=== PATIENT | female | born 1945 | race Caucasian/White ===

== ENCOUNTER → 2018-03-23 06:26 | Day surgery (SDC) | payer BC ==
[~2018-03-23 06:26] MED LIST: Acetaminophen TAB* 325 MG PO PRN; Buffered Lidocaine 0.9% SYRIN* 5 ML/SYR SYRINGE INTRADERM ONE; Cyclopentolate 1% OPTH.SOL* 2 ML BTL ONE; Ketorolac 0.5% OPHTH (NF) 0.5 % 5 ML BTL ONE; Lidocaine 1%* 5 ML VIAL ONE; Lidocaine 2% EPI 1:200000 MPF*10-20 ML VIAL ONE; Midazolam* 1 MG/ML 2 ML VIAL (2 MG) ONE; Neomycin/Polymy/Dex OPTH.SUSP* MAXITROL 0.1% 5 ML ONE; Phenylephrine 2.5% OPTH.SOL* 2 ML BTL ONE; Povidone Iodine 5% OPTH* 30 ML BTL ONE; Proparacaine 0.5% OPHTH.SOL* 15 ML BTL ONE; acetaZOLAMIDE TAB* 250 MG ONE
[2018-03-23 08:11] VITALS: BP 128/75
--- NOTE | 2018-03-23 09:49 | OP ---
DATE OF OPERATION: 03/23/2018. DATE OF : 1945. SURGEON: Magdiel Colin M.D. PREOPERATIVE DIAGNOSIS: Cataract right eye. POSTOPERATIVE DIAGNOSIS: Cataract right eye. OPERATIVE PROCEDURE: Extracapsular cataract extraction with intraocular lens implant right eye. PROCEDURE: The patient was brought to the operating room after being given 1/2% Alcaine with epineph rine drops in the preoperative area. The eye was prepped and draped in the usual sterile fashion. S terile drape and eyelid speculum were placed. Again, topical 1/2% Alcaine with epinephrine was given . A paracentesis incision was made at the 9 o'clock position with the No.75 blade. Clear cornea inc ision 2.2 x 2.2-mm was created at the 12 o'clock position starting at the anterior limbus using the 2 .2-mm keratome. The anterior chamber was irrigated with 0.4 mL of 1% non-preservative intracameral l idocaine and filled with DisCoVisc. A capsulorrhexis was completed using the cystotome and the Utrat a forceps. Hydrodissection was performed with balanced salt solution. The lens nucleus was removed w ith the Phacoemulsification handpiece without incident. Cortex was removed with the irrigation-aspir ation handpiece. The capsular bag was re-inflated using DisCoVisc and an [id number] implant was inser librado with the shooter, oriented to the 96 degree meridian with horizontal reference masters made with th e patient in the seated position in the preoperative area. The irrigation-aspiration handpiece was u sed to remove all residual DisCoVisc. The eye was refilled with balanced salt solution and the wound checked and found to be watertight. Topical Maxitrol drops were given. [id number]/[facility] #: [id number]
== END | disposition home or self-care (01) ==
LOC: OREAST 06:26
PROVIDERS: ATTEND Specialist
DX: H25.811 Combined forms of age-related cataract, right eye (principal); H04.123 Dry eye syndrome of bilateral lacrimal glands; M81.0 Age-related osteoporosis without current pathological fracture; E78.5 Hyperlipidemia, unspecified
CPT/HCPCS: A9270-GY; J2250; V2787

== ENCOUNTER 2018-04-06 07:51 | Day surgery (SDC) | payer BC, MEDICARE ==
[~2018-04-06 07:51] MED LIST changes: -Cyclopentolate 1% OPTH.SOL* 2 ML BTL ONE; -Ketorolac 0.5% OPHTH (NF) 0.5 % 5 ML BTL ONE; -Lidocaine 1%* 5 ML VIAL ONE; -Lidocaine 2% EPI 1:200000 MPF*10-20 ML VIAL ONE; -Midazolam* 1 MG/ML 2 ML VIAL (2 MG) ONE; -Neomycin/Polymy/Dex OPTH.SUSP* MAXITROL 0.1% 5 ML ONE; -Phenylephrine 2.5% OPTH.SOL* 2 ML BTL ONE; -Povidone Iodine 5% OPTH* 30 ML BTL ONE; -Proparacaine 0.5% OPHTH.SOL* 15 ML BTL ONE; -acetaZOLAMIDE TAB* 250 MG ONE
[2018-04-06] MEDS ORDERED: Midazolam* 1 MG/ML 2 ML VIAL (2 MG) ONE ×2 (09:57→10:01)
[2018-04-06 10:26] VITALS: BP 124/42
[2018-04-06] MEDS ORDERED: Ketorolac 0.5% OPHTH (NF) 0.5 % 5 ML BTL ONE (10:33)
[2018-04-06] MEDS ORDERED: Lidocaine 1%* 5 ML VIAL ONE (10:33)
[2018-04-06] MEDS ORDERED: acetaZOLAMIDE TAB* 250 MG ONE (10:33)
[2018-04-06] MEDS ORDERED: Proparacaine 0.5% OPHTH.SOL* 15 ML BTL ONE (10:33)
[2018-04-06] MEDS ORDERED: Neomycin/Polymy/Dex OPTH.SUSP* MAXITROL 0.1% 5 ML ONE (10:33)
[2018-04-06] MEDS ORDERED: Povidone Iodine 5% OPTH* 30 ML BTL ONE (10:33)
[2018-04-06] MEDS ORDERED: Lidocaine 2% EPI 1:200000 MPF*10-20 ML VIAL ONE (10:33)
[2018-04-06] MEDS ORDERED: Cyclopentolate 1% OPTH.SOL* 2 ML BTL ONE (10:33)
[2018-04-06] MEDS ORDERED: Phenylephrine 2.5% OPTH.SOL* 2 ML BTL ONE (10:33)
--- NOTE | 2018-04-06 13:29 | OP ---
DATE OF OPERATION: 04/06/2018 - [facility] DATE OF : 1945. SURGEON: Magdiel Colin M.D. PREOPERATIVE DIAGNOSIS: Cataract left eye. POSTOPERATIVE DIAGNOSIS: Cataract left eye. OPERATIVE PROCEDURE: Extracapsular cataract extraction with intraocular lens implant left eye. DESCRIPTION OF PROCEDURE: The patient was brought to the operating room after being given 1/2% Alcaine with epinephrine drops in the preoperative area. The eye was prepped and draped in the usual sterile fashion. Sterile drape and eyelid speculum were placed. Again, topical 1/2% Alcaine with epinephrine was given. A paracentesis incision was made at the 3 o'clock position with the No.75 blade. Clear cornea incision 2.2 x 2.2-mm was created at the 6 o'clock position starting at the anterior limbus using the 2.2-mm keratome. The anterior chamber was irrigated with 0.4 mL of 1% non-preservative intracameral lidocaine and filled with DisCoVisc. A capsulorrhexis was completed using the cystotome and the Utrata forceps. Hydrodissection was performed with balanced salt solution. The lens nucleus was removed with the Phacoemulsification handpiece without incident. Cortex was removed with the irrigation-aspiration handpiece. The capsular bag was re-inflated using DisCoVisc and an [id number] implant was inserted with the shooter, oriented to the 101 degree meridian. Horizontal reference masters were made with the patient seated in the preoperative area. The irrigation-aspiration handpiece was used to remove all residual DisCoVisc. The eye was refilled with balanced salt solution and the wound checked and found to be watertight. Topical Maxitrol drops were given. [id number]/[facility] #: [id number] [facility]
== END 2018-04-06 10:30 | disposition home or self-care (01) ==
LOC: OREAST 07:51
PROVIDERS: ATTEND Specialist
DX: H25.812 Combined forms of age-related cataract, left eye (principal); H04.123 Dry eye syndrome of bilateral lacrimal glands; M81.0 Age-related osteoporosis without current pathological fracture; E78.5 Hyperlipidemia, unspecified
CPT/HCPCS: A9270-GY; J2250; V2787

== ENCOUNTER 2018-11-02 08:09 | Emergency (ER) | payer BC, MEDICARE ==
[2018-11-02 08:20] VITALS: BP 165/72
--- NOTE | 2018-11-02 10:49 | UC ---
Skin Complaint HPI - HPI Summary HPI Summary: PATIENT WAS OUT WEEDING 2 DAYS AGO. SHE DEVELOPED AN ITCHY RASH ON HER LEFT ANKLE. THEN IT APPEARED ON HER BILATERAL ARMS AND NECK. STATES SHE HAS POISON SULY ON HER PROPERTY AND THIS FEELS SIMILAR TO PREVIOUS POISON USLY REACTIONS. NO FEVER OR DRAINAGE. - History of Current Complaint Chief Complaint: UCRas Time Seen by Provider: 11/02/18 08:49 Stated Complaint: RASH Hx Obtained From: Patient Onset/Duration: Gradual Onset, Lasting Days, Still Present Timing: Constant Onset Severity: Mild Current Severity: Moderate Pain Intensity: 3 Pain Scale Used: 0-10 Numeric Character: Pruritus Aggravating Factor(s): Touch Alleviating Factor(s): Nothing Associated Signs & Symptoms: Positive: Rash. Negative: Nausea, Vomiting, Difficulty Breathing, Fever, Wheezing, Throat Tightening, Drainage, Tenderness, Red Streaks Related History: Possible Reaction to: Environmental Exposure - Allergy/Home Medications Allergies/Adverse Reactions: Allergies Allergy/AdvReac Type Severity Reaction Status Date / Time cortisone Allergy Rash Verified 11/02/18 08:20 PMH/Surg Hx/FS Hx/Imm Hx Previously Healthy: Yes - Surgical History Surgical History: Yes Surgery Procedure, Year, and Place: BILAT CTS [place]. LEFT BUNIONECTOMY 2002 [place] - Family History Known Family History: Positive: Non-Contributory - Social History Alcohol Use: Daily Alcohol Amount: 2 GLASSES WINE/WEEK Substance Use Type: None Smoking Status (MU): Never Smoked Tobacco Have You Smoked in the Last Year: No Review of Systems All Other Systems Reviewed And Are Negative: Yes Constitutional: Positive: Negative Skin: Positive: Rash Respiratory: Positive: Negative Cardiovascular: Positive: Negative Gastrointestinal: Positive: Negative Physical Exam Triage Information Reviewed: Yes Appearance: Well-Appearing, No Pain Distress, Well-Nourished Vital Signs: Initial Vital Signs Temp 97.2 F 11/02/18 08:16 Pulse 72 11/02/18 08:16 Resp 18 11/02/18 08:16 BP 165/72 11/02/18 08:16 Pulse Ox 96 11/02/18 08:16 Vital Signs Reviewed: Yes Eyes: Positive: Conjunctiva Clear ENT: Positive: Hearing grossly normal Neck: Positive: Supple Respiratory: Positive: No respiratory distress, No accessory muscle use Cardiovascular: Positive: Pulses Normal Abdomen Description: Positive: Soft Musculoskeletal: Positive: No Edema Neurological: Positive: Alert Psychological: Positive: Age Appropriate Behavior Skin: Positive: Rashes - MACULOPAPULAR RASH OVER LEFT ANKLE, BILATERAL UPPER EXTREMITIES AND RIGHT SIDE OF NECK. Course/Dx - Diagnoses Provider Diagnosis: Poison suly dermatitis Discharge - Sign-Out/Discharge Documenting (check all that apply): Patient Departure All imaging exams completed and their final reports reviewed: No Studies - Discharge Plan Condition: Stable Disposition: HOME Prescriptions: predniSONE TAB* [Deltasone TAB*] 50 mg PO DAILY #5 tab Patient Education Materials: Poison Suly (ED) Referrals: Clint Goodman MD [Primary Care Provider] - If Needed Additional Instructions: USE DAILY HYPOALLERGENIC MOISTURIZING LOTION TAKE PREDNISONE DAILY PRESCRIBED AVOID HEAT AND HOT WATER TAKE OTC ANTIHISTAMINE DAILY (CLARITIN (LORATADINE), ZYRTEC (CETIRIZINE) OR ESTRELLA (FEXOFENADINE) IN THE MORNING) DO NOT SCRATCH KEEP COOL, CLEAN AND DRY WASH ALL CLOTHES AND GARDENING TOOLS THAT WERE USED. - Billing Disposition and Condition Condition: STABLE Disposition: Home
== END 2018-11-02 09:00 | disposition home or self-care (01) ==
LOC: UCEAST 08:09
DX: L23.7 Allergic contact dermatitis due to plants, except food (principal)
CPT/HCPCS: 99212; G0463